=== PATIENT | male | born 1980 | race Caucasian/White ===

== ENCOUNTER 2018-06-29 09:55 | Emergency (ER) | payer SELFPAY ==
[~2018-06-29] VITALS: Ht 175.3 cm; Wt 99.8 kg
--- OUTSIDE RECORDS SUMMARY | 2018-06-29 09:58 | XMS REPORT | Clinical Summary ---
Author Author [facility] Organization [facility] Address Unknown Phone Unavailable Care Team Providers Care Rn Mds Name Role Phone Asked, No Pcp PCP Unavailable Allergies Active Allergy Reactions Severity Noted Date Comments Penicillins Rash High 11/28/2017 Current Medications Prescription Sig. Disp. Refills Start End Date Status Date gabapentin (NEURONTIN) Take 300 mg by mouth 3 Active 300 mg capsule (three) times a day. divalproex (DEPAKOTE) 500 Take 500 mg by mouth Active MG 24 hr tablet nightly. hydrOXYzine (ATARAX) 50 Take 50 mg by mouth 3 Active MG tablet (three) times a day as needed for anxiety. traZODone (DESYREL) 100 Take 100 mg by mouth Active MG tablet nightly. mirtazapine (REMERON) 15 Take 15 mg by mouth Active MG tablet nightly. mirtazapine (REMERON) 15 Take 1 tablet (15 mg 30 tablet 0 12/05/01/05/20 MG tabletIndications: total) by mouth nightly 18 18 Major Depressive Disorder for 30 days. gabapentin (NEURONTIN) Take 2 capsules (600 mg 180 capsule 0 12/05/20 01/05/20 300 mg total) by mouth 3 (three) 18 18 capsuleIndications: times a day for 30 days. Alcoholism hydrOXYzine (ATARAX) 50 Take 1 tablet (50 mg 30 tablet 0 12/05/01/05/20 MG tabletIndications: total) by mouth 3 (three) 18 18 Anxiety times a day as needed for anxiety for up to 30 days. levoFLOXacin (LEVAQUIN) Take 1 tablet (750 mg 5 tablet 0 12/06/20 12/12/19 750 MG tabletIndications: total) by mouth daily for 18 18 respiratory infection 5 days. traZODone (DESYREL) 100 Take 1 tablet (100 mg 30 tablet 0 12/06/19 01/05/20 MG tabletIndications: total) by mouth nightly 18 18 insomnia associated with as needed (INSOMNIA) for depression up to 30 days. nicotine (NICODERM CQ) 21 Place 1 patch on the skin 30 patch 0 12/06/19 01/05/20 mg/24 hrIndications: daily as needed (NICOTINE 18 18 Smoking Cessation WITHDRAWAL) for up to 30 days. folic acid (FOLVITE) 1 MG Take 1 tablet (1 mg 30 tablet 0 02/19/20 03/20/20 tablet total) by mouth daily for 18 18 30 days. multivitamin (THERAGRAN) Take 1 tablet by mouth 30 tablet 0 02/19/20 03/20/20 tablet daily for 30 days. 18 18 pantoprazole (PROTONIX) Take 1 tablet (40 mg 30 tablet 0 02/20/20 03/21/20 40 MG EC total) by mouth daily for 18 18 tabletIndications: 30 days. Alcohol dependence with withdrawal delirium (HCC) thiamine 100 MG tablet Take 1 tablet (100 mg 30 tablet 0 02/19/20 03/20/20 total) by mouth daily for 18 18 30 days. ferrous sulfate 325 (65 Take 1 tablet (325 mg 90 tablet 0 02/19/20 03/20/20 FE) MG EC tablet total) by mouth 3 (three) 18 18 times a day with meals for 30 days. Active Problems Problem Noted Date Alcohol dependence with withdrawal delirium (HCC) 02/16/2018 MDD (major depressive disorder), recurrent episode, severe (HCC) 11/30/2017 Alcohol abuse 11/29/2017 Encounters Date Type Specialty Care Team Description 02/16/2018 [facility] General Internal Medicine Pelon Bundy MD Alcohol dependence with - Encounter Aspen Boggs MD withdrawal delirium 02/18/2018 (Primary Dx); Severe episode of recurrent major depressive disorder, without psychotic features 11/28/2017 [facility] Psychiatry Merlin Burrell DO Alcoholic intoxication - Encounter Michele Chamorro MD with complication 12/06/2017 Wes Dolan MD (Primary Dx); DTs (delirium tremens) after 06/28/2017 Family History Medical History Relation Name Comments Anxiety disorder Mother Relation Name Status Comments Mother Social History Tobacco Use Types Packs/Day Years Used Date Current Every Day Smoker Cigarettes 1 15 Tobacco Cessation: Ready to Quit: No; Counseling Given: Yes Alcohol Use Drinks/Week oz/Week Comments Yes 1/2 marcela borrego Sex Assigned at Date Recorded Not on file Last Filed Vital Signs Vital Sign Reading Time Taken Blood Pressure 136/83 02/18/2018 7:22 AM CDT Pulse 84 02/18/2018 7:22 AM CDT Temperature 35.8 C (96.5 F) 02/18/2018 7:22 AM CDT Respiratory Rate 19 02/18/2018 7:22 AM CDT Oxygen Saturation 95% 02/18/2018 7:22 AM CDT Inhaled Oxygen - - Concentration Weight 103 kg (226 lb 12.8 oz) 02/17/2018 12:53 PM CDT Height 175.3 cm (5' 9") 11/29/2017 8:37 PM CDT Body Mass Index 33.49 02/17/2018 12:53 PM CDT Plan of Treatment Health Maintenance Due Date Last Done Comments INFLUENZA VACCINE 04/13/2018 Procedures Procedure Name Priority Date/Time Associated Diagnosis Comments HC COMPLETE BLD COUNT Routine 02/18/2018 Results for this W/AUTO DIFF 6:00 AM CDT procedure are in the results section. VITAMIN B1 LEVEL, WHOLE Routine 02/18/2018 Results for this BLOOD 6:00 AM CDT procedure are in the results section. ZZESTIMATED GFR Routine 02/18/2018 Results for this 4:00 AM CDT procedure are in the results section. BASIC METABOLIC PANEL Routine 02/18/2018 Results for this 4:00 AM CDT procedure are in the results section. TOTAL IRON BINDING Routine 02/18/2018 Results for this CAPACITY 4:00 AM CDT procedure are in the results section. FERRITIN LEVEL Routine 02/18/2018 Results for this 4:00 AM CDT procedure are in the results section. PHOSPHORUS LEVEL Routine 02/18/2018 Results for this 4:00 AM CDT procedure are in the results section. MAGNESIUM LEVEL Routine 02/18/2018 Results for this 4:00 AM CDT procedure are in the results section. ZZESTIMATED GFR Routine 02/17/2018 Results for this 5:00 AM CDT procedure are in the results section. FOLATE LEVEL Routine 02/17/2018 Results for this 5:00 AM CDT procedure are in the results section. VITAMIN B12 LEVEL Routine 02/17/2018 Results for this 5:00 AM CDT procedure are in the results section. PHOSPHORUS LEVEL Routine 02/17/2018 Results for this 5:00 AM CDT procedure are in the results section. MAGNESIUM LEVEL Routine 02/17/2018 Results for this 5:00 AM CDT procedure are in the results section. COMPREHENSIVE METABOLIC Routine 02/17/2018 Results for this PANEL 5:00 AM CDT procedure are in the results section. HC COMPLETE BLD COUNT Routine 02/17/2018 Results for this W/AUTO DIFF 5:00 AM CDT procedure are in the results section. US ABDOMEN COMPLETE STAT 02/16/2018 Results for this 4:03 PM CDT procedure are in the results section. XR CHEST 1 VW PORTABLE STAT 02/16/2018 Results for this 2:23 PM CDT procedure are in the results section. ECG ED PRELIMINARY Routine 02/16/2018 Results for this INTERPRETATION 12:08 PM CDT procedure are in the results section. URINALYSIS SCREEN AND STAT 02/16/2018 Results for this MICROSCOPY, WITH REFLEX 9:40 AM CDT procedure are in the TO CULTURE results section. URINE DRUGS OF ABUSE STAT 02/16/2018 Results for this SCREEN 9:40 AM CDT procedure are in the results section. URINE CULTURE STAT 02/16/2018 Results for this 9:40 AM CDT procedure are in the results section. ECG 12-LEAD STAT 02/16/2018 Results for this 9:34 AM CDT procedure are in the results section. VALPROIC ACID LEVEL STAT 02/16/2018 Results for this 9:33 AM CDT procedure are in the results section. ZZESTIMATED GFR STAT 02/16/2018 Results for this 9:33 AM CDT procedure are in the results section. SALICYLATE LEVEL STAT 02/16/2018 Results for this 9:33 AM CDT procedure are in the results section. ACETAMINOPHEN LEVEL STAT 02/16/2018 Results for this 9:33 AM CDT procedure are in the results section. ALCOHOL LEVEL, BLOOD STAT 02/16/2018 Results for this 9:33 AM CDT procedure are in the results section. T4, FREE STAT 02/16/2018 Results for this 9:33 AM CDT procedure are in the results section. THYROID STIMULATING STAT 02/16/2018 Results for this HORMONE 9:33 AM CDT procedure are in the results section. COMPREHENSIVE METABOLIC STAT 02/16/2018 Results for this PANEL 9:33 AM CDT procedure are in the results section. HC COMPLETE BLD COUNT STAT 02/16/2018 Results for this W/AUTO DIFF 9:33 AM CDT procedure are in the results section. ZZESTIMATED GFR Routine 12/04/2017 Results for this 12:00 AM CDT procedure are in the results section. COMPREHENSIVE METABOLIC Routine 12/04/2017 Results for this PANEL 12:00 AM CDT procedure are in the results section. US HEPATIC Routine 11/30/2017 Results for this 3:33 PM CDT procedure are in the results section. XR CHEST 2 VW Routine 11/30/2017 Results for this 3:12 PM CDT procedure are in the results section. HEPATITIS ACUTE PANEL Routine 11/30/2017 Results for this 10:02 AM CDT procedure are in the results section. SYPHILIS TREPONEMAL IGG Routine 11/30/2017 Results for this 10:02 AM CDT procedure are in the results section. HIV 1, 2 ANTIBODY Routine 11/30/2017 Results for this 10:02 AM CDT procedure are in the results section. ECG 12-LEAD STAT 11/30/2017 Results for this 8:33 AM CDT procedure are in the results section. HEMOGLOBIN A1C Routine 11/30/2017 Results for this 5:30 AM CDT procedure are in the results section. LIPID PANEL Routine 11/30/2017 Results for this 1:20 AM CDT procedure are in the results section. ECG 12-LEAD STAT 11/28/2017 Results for this 8:16 PM CDT procedure are in the results section. ZZESTIMATED GFR STAT 11/28/2017 Results for this 8:10 PM CDT procedure are in the results section. VALPROIC ACID LEVEL STAT 11/28/2017 Results for this 8:10 PM CDT procedure are in the results section. CARBAMAZEPINE LEVEL STAT 11/28/2017 Results for this 8:10 PM CDT procedure are in the results section. LITHIUM LEVEL STAT 11/28/2017 Results for this 8:10 PM CDT procedure are in the results section. CREATINE KINASE, TOTAL STAT 11/28/2017 Results for this (CPK) 8:10 PM CDT procedure are in the results section. SALICYLATE LEVEL STAT 11/28/2017 Results for this 8:10 PM CDT procedure are in the results section. ACETAMINOPHEN LEVEL STAT 11/28/2017 Results for this 8:10 PM CDT procedure are in the results section. URINE DRUGS OF ABUSE STAT 11/28/2017 Results for this SCREEN 8:10 PM CDT procedure are in the results section. URINALYSIS SCREEN AND STAT 11/28/2017 Results for this MICROSCOPY, WITH REFLEX 8:10 PM CDT procedure are in the TO CULTURE results section. ALCOHOL LEVEL, BLOOD STAT 11/28/2017 Results for this 8:10 PM CDT procedure are in the results section. THYROID STIMULATING STAT 11/28/2017 Results for this HORMONE 8:10 PM CDT procedure are in the results section. T4, FREE STAT 11/28/2017 Results for this 8:10 PM CDT procedure are in the results section. COMPREHENSIVE METABOLIC STAT 11/28/2017 Results for this PANEL 8:10 PM CDT procedure are in the results section. HC COMPLETE BLD COUNT STAT 11/28/2017 Results for this W/AUTO DIFF 8:10 PM CDT procedure are in the results section. URINE CULTURE STAT 11/28/2017 Results for this 8:10 PM CDT procedure are in the results section. after 06/28/2017 Results * Vitamin B1 level, whole blood (02/18/2018 6:00 AM) Vitamin B1 263 (H) 70 - 180 nmol/L [facility] Comment: INTERPRETIVE INFORMATION: Vitamin B1, Whole Blood This assay measures the concentration of thiamine diphosphate (TDP), the primary active form of vitamin B1. Approximately 90 percent of vitamin B1 present in whole blood is TDP. Thiamine and thiamine monophosphate, which comprise the remaining 10 percent, are not measured. Test developed and characteristics determined by [facility]. See Compliance Statement B: [employer]/CS Performed by [facility], [address], [place] [id number] [email or web address] Jose Cedeno MD - Lab. Director Specimen Plasma specimen Performing Organization Address City/State/Zipcode Phone Number [facility] [address] [place] [address] * CBC with platelet and differential (02/18/2018 6:00 AM) Only the most recent of 4 results within the time period is included. WBC 9.00 4.50 - 11.00 k/uL [facility] OF PATHOLOGY AND GENOMIC MEDICINE RBC 4.55 4.40 - 6.00 m/uL [facility]OLOGY [facility]OMIC MEDICINE HGB 12.7 (L) 14.0 - 18.0 g/dL [facility] PATHOLOGY AND GENOMIC MEDICINE HCT 38.0 (L) 41.0 - 51.0 % [facility]OLOGY AND [facility]OMIC MEDICINE MCV 83.5 82.0 - 100.0 fL [facility]OLOGY AND GENOMIC MEDICINE MCH 27.9 27.0 - 34.0 pg [facility]OLOGY AND GENOMIC MEDICINE MCHC 33.4 31.0 - 37.0 g/dL [facility] PATHOLOGY AND GENOMIC MEDICINE RDW - SD 42.5 37.0 - 55.0 fL [facility] OF PATHOLOGY AND GENOMIC MEDICINE MPV 10.4 8.8 - 13.2 fL [facility]OLOGY AND [facility]IC MEDICINE Platelet count 202 150 - 400 k/uL [facility] PATHOLOGY AND [facility]OMIC MEDICINE Nucleated RBC 0.00 /100 WBC [facility] PATHOLOGY AND GENOMIC MEDICINE Neutrophils 59.4 39.0 - 69.0 % [facility]OLOGY AND GENOMIC MEDICINE Lymphocytes 28.1 25.0 - 45.0 % [facility] PATHOLOGY AND GENOMIC MEDICINE Monocytes 5.0 0.0 - 10.0 % [facility] PATHOLOGY AND GENOMIC MEDICINE Eosinophils 6.2 (H) 0.0 - 5.0 % [facility] PATHOLOGY AND GENOMIC MEDICINE Basophils 0.3 0.0 - 1.0 % [facility] OF PATHOLOGY AND GENOMIC MEDICINE Immature granulocytes 1.0Comment: "Immature 0.0 - 1.0 % [facility] DEPARTMENT OF granulocytes" (promyelocytes, PATHOLOGY AND myelocytes, metamyelocytes) GENOMIC MEDICINE Specimen Blood Performing Organization Address City/[facility] [place] [address] PATHOLOGY AND GENOMIC MEDICINE * Total iron binding capacity (02/18/2018 4:00 AM) Iron level 46 (L) 59 - 158 ug/dL [facility] PATHOLOGY AND GENOMIC MEDICINE Iron binding capacity 246 200 - 400 ug/dL [facility] PATHOLOGY AND GENOMIC MEDICINE % Saturation 18.7 (L) 20.0 - 40.0 % [facility] PATHOLOGY AND GENOMIC MEDICINE Specimen Plasma specimen Performing Organization Address City/[facility] Cent[facility] Phone Number [address] [address] PATHOLOGY [facility] GENOMIC MEDICINE * Estimated GFR (02/18/2018 4:00 AM) Only the most recent of 5 results within the time period is included. GFR Non Af Amer >90 mL/min/1.73 m2 [facility] PATHOLOGY AND GENOMIC MEDICINE GFR Af Amer >90 mL/min/1.73 m2 [facility] DEPARTMENT OF Comment: PATHOLOGY AND Chronic kidney disease: <60 GENOMIC MEDICINE mL/min/1.73m2 Kidney failure: <15 mL/min/1.73m2 The estimated GFR is calculated from the IDMS-traceable Modification of Diet in Renal Disease Equation. The accuracy of the calculation is poor when the creatinine is normal. Calculated values >90 mL/min/1.73m2 are not reported. This equation has not been validated in children (<18 years), women, the elderly (>70 years), or ethnic groups other than Caucasians and Americans. Specimen Plasma specimen Performing Organization Address City/[facility] [place] [address] PATHOLOGY AND [facility] * Phosphorus level (02/18/2018 4:00 AM) Only the most recent of 2 results within the time period is included. Phosphorus 4.4 2.4 - 4.5 mg/dL [facility] DEPARTMENT OF PATHOLOGY AND [facility]ICINE Specimen Plasma specimen Performing Organization Address City/[facility] [place] [address] PATHOLOGY [facility] * Magnesium level (02/18/2018 4:00 AM) Only the most recent of 2 results within the time period is included. Magnesium 2.1 1.6 - 2.6 mg/dL [facility] OF PATHOLOGY AND [facility] Specimen Plasma specimen Performing Organization Address City/[facility] [place] [address] PATHOLOGY AND [facility] * Ferritin level (02/18/2018 4:00 AM) Ferritin level 173 30 - 400 ng/mL [facility] OF PATHOLOGY AND [facility] Specimen Plasma specimen Performing Organization Address City/[facility] [place] [address] PATHOLOGY [facility] * Basic metabolic panel (02/18/2018 4:00 AM) Sodium 141 135 - 148 mEq/L [facility] OF PATHOLOGY AND GENOMIC MEDICINE Potassium 3.9 3.5 - 5.0 mEq/L [facility] OF PATHOLOGY AND GENOMIC MEDICINE Chloride 105 98 - 112 mEq/L [facility] OF PATHOLOGY AND GENOMIC MEDICINE CO2 21 (L) 24 - 31 mEq/L [facility] OF PATHOLOGY AND GENOMIC MEDICINE Anion gap 15@ANIO 7 - 15 mEq/L [facility] OF PATHOLOGY AND GENOMIC MEDICINE BUN 12 6 - 20 mg/dL [facility] OF PATHOLOGY AND GENOMIC MEDICINE Creatinine 0.8 0.7 - 1.2 mg/dL [facility] OF PATHOLOGY AND GENOMIC MEDICINE Glucose 104 (H) 65 - 99 mg/dL [facility] OF PATHOLOGY AND GENOMIC MEDICINE Calcium 8.4 8.3 - 10.2 mg/dL [facility] OF PATHOLOGY AND GENOMIC MEDICINE Specimen Plasma specimen Performing Organization Address City/[facility]/[place] [address] PATHOLOGY AND GENOMIC [facility] * Folate level (02/17/2018 5:00 AM) Folate >20.0 4.8 - 24.2 ng/mL [facility] OF PATHOLOGY AND GENOMIC MEDICINE Specimen Serum Performing Organization Address City/[facility] [place] [address] PATHOLOGY AND [facility] * Vitamin B12 level (02/17/2018 5:00 AM) Vitamin B12 341 211 - 946 pg/mL [facility]PART[facility] OF Comment: PATHOLOGY AND Significant overlap exists GENOMIC MEDICINE between normal and deficiency states. However, most patients with deficiencies will have Serum B12 <200 pg/mL. Specimen Serum Performing Organization Address City/[facility] [place] [address] PATHOLOGY AND GENOMIC MEDICINE * Comprehensive metabolic panel (02/17/2018 5:00 AM) Only the most recent of 4 results within the time period is included. Sodium 140 135 - 148 mEq/L [facility] OF PATHOLOGY AND GENOMIC MEDICINE Potassium 3.1 (L) 3.5 - 5.0 mEq/L [facility] OF PATHOLOGY AND GENOMIC MEDICINE Chloride 101 98 - 112 mEq/L [facility] OF PATHOLOGY AND GENOMIC MEDICINE CO2 25 24 - 31 mEq/L [facility] OF PATHOLOGY AND GENOMIC MEDICINE Anion gap 14@ANIO 7 - 15 mEq/L [facility]MENT OF PATHOLOGY AND GENOMIC MEDICINE BUN 18 6 - 20 mg/dL [facility] OF PATHOLOGY AND GENOMIC MEDICINE Creatinine 1.0 0.7 - 1.2 mg/dL [facility] OF PATHOLOGY AND GENOMIC MEDICINE Glucose 114 (H) 65 - 99 mg/dL [facility] OF PATHOLOGY AND GENOMIC MEDICINE Calcium 9.0 8.3 - 10.2 mg/dL [facility] OF PATHOLOGY AND GENOMIC MEDICINE Protein 6.8 6.3 - 8.3 g/dL [facility] DEPARTMENT OF Comment: PATHOLOGY AND GENOMIC MEDICINE 4.6-7.0 g/dL 1 week 4.4-7.6 g/dL 7 months-1year 5.1-7.3 g/dL 1-2 years5.6-7 .5 g/dL >3 years6.0-8 .0 g/dL 18-150 6.3-8.3 g/dL Albumin 3.3 (L) 3.5 - 5.0 g/dL [facility] OF PATHOLOGY AND GENOMIC MEDICINE A/G ratio 0.9 0.7 - 3.8 [facility] OF PATHOLOGY AND GENOMIC MEDICINE Alkaline phosphatase 88 40 - 129 U/L [facility] OF PATHOLOGY AND GENOMIC MEDICINE AST 42 10 - 50 U/L [facility] OF PATHOLOGY AND GENOMIC MEDICINE ALT 56 (H) 5 - 50 U/L [facility] OF PATHOLOGY AND GENOMIC MEDICINE Total bilirubin 0.3 0.0 - 1.2 mg/dL [facility] OF PATHOLOGY AND GENOMIC MEDICINE Specimen Plasma specimen Performing Organization Address City/State/Zipcode Phone Number [facility] DEPARTMENT OF [address] [place] [address] PATHOLOGY AND GENOMIC MEDICINE * US Abdomen Complete (02/16/2018 4:03 PM) Narrative Performed At Examination: US ABDOMEN COMPLETE [facility] Clinical history: chronic alcoholism Comparison: 11/30/2017 Impression:Transverse and longitudinal sonographic images were obtained through the abdomen. 1.The gallbladder appears normal without evidence of calculus, pericholecystic fluid, or gallbladder wall thickening.The common ductis normal in caliber measuring 3 mm. 2.No focal liver is seen. No definite morphologic evidence of cirrhosis. The portal vein is patent.The spleen is not enlarged. 3.The right kidney measures 10.6 and left kidney 10.3 cm in length. The kidneys demonstrate a normal sonographic appearance. 4.The visualized pancreas, abdominal aorta, and inferior vena cava are unremarkable. 5.There is no suspicious fluid. [id number] Procedure Note Interface, Radiology Results Incoming - 02/16/2018 4:08 PM CDT Examination: US ABDOMEN COMPLETE Clinical history: chronic alcoholism Comparison: 11/30/2017 Impression: Transverse and longitudinal sonographic images were obtained through the abdomen. 1. The gallbladder appears normal without evidence of calculus, pericholecystic fluid, or gallbladder wall thickening. The common duct is normal in caliber measuring 3 mm. 2. No focal liver is seen. No definite morphologic evidence of cirrhosis. The portal vein is patent. The spleen is not enlarged. 3. The right kidney measures 10.6 and left kidney 10.3 cm in length. The kidneys demonstrate a normal sonographic appearance. 4. The visualized pancreas, abdominal aorta, and inferior vena cava are unremarkable. 5. There is no suspicious fluid. [id number] Performing Organization Address [facility] Phone Number [facility] [address] [place] [address] * XR Chest 1 Vw Portable (02/16/2018 2:23 PM) Narrative Performed At EXAMINATION:XR CHEST 1 VW PORTABLE [facility] CLINICAL HISTORY:Cough, Alcoholic patient with coughsuspect aspiration COMPARISON:November 30, 2017 chest IMPRESSION: Unremarkable single view chest. No change compared to previous. The lungs are clear. The heart is not enlarged. The bony structures are within normal limits. [id number] Procedure Note Interface, Radiology Results Incoming - 02/16/2018 2:30 PM CDT EXAMINATION: XR CHEST 1 VW PORTABLE CLINICAL HISTORY: Cough, Alcoholic patient with cough suspect aspiration COMPARISON: November 30, 2017 chest IMPRESSION: Unremarkable single view chest. No change compared to previous. The lungs are clear. The heart is not enlarged. The bony structures are within normal limits. [id number] Performing Organization Address [facility] Phone Number [facility] [address] [place] [address] * ECG ED Preliminary Interpretation - NOT AN ORDER (02/16/2018 12:08 PM) Narrative Performed At Pelon Bundy MD 02/17/20182:20 PM ECG ED Preliminary Interpretation - Not an Order Performed by: PELON BUNDY Authorized by: PELON BUNDY ECG reviewed by ED Physician in the absence of a va underwriter: yes Previous ECG: Previous ECG:Unavailable Interpretation: Interpretation: abnormal Rate: ECG rate:121 ECG rate assessment: tachycardic Rhythm: Rhythm: sinus tachycardia QRS: QRS axis:Normal QRS intervals:Normal ST segments: ST segments:Non-specific T waves: T waves: normal * Urinalysis screen and microscopy, with reflex to culture (02/16/2018 9:40 AM) Only the most recent of 2 results within the time period is included. Specimen site Midstream [facility]PARTMENT OF PATHOLOGY AND GENOMIC MEDICINE Color, UA Bailey [facility]PART[facility] OF PATHOLOGY AND GENOMIC MEDICINE Appearance, UA Clear [facility]PARTMENT OF PATHOLOGY AND GENOMIC MEDICINE Specific gravity, UA 1.035 1.001 - 1.035 [facility] DEPARTMENT OF PATHOLOGY AND GENOMIC MEDICINE pH, UA 5.0 5.0 - 8.5 [facility]MENT OF PATHOLOGY AND GENOMIC MEDICINE Protein, UA 2+ (A) Negative [facility] OF PATHOLOGY AND GENOMIC MEDICINE Glucose, UA Negative Negative [facility] OF PATHOLOGY AND GENOMIC MEDICINE Ketones, UA Trace (A) Negative [facility] OF PATHOLOGY AND GENOMIC MEDICINE Bilirubin, UA Positive@UBIL (A) Negative [facility] OF PATHOLOGY AND GENOMIC MEDICINE Blood, UA Negative Negative [facility]PARTMENT OF PATHOLOGY AND GENOMIC MEDICINE Nitrite, UA Negative Negative [facility] OF PATHOLOGY AND GENOMIC MEDICINE Urobilinogen, UA 4.0 (A) <2.0 [facility] PATHOLOGY AND GENOMIC MEDICINE Leukocyte esterase, UA Negative Negative [facility] PATHOLOGY AND GENOMIC MEDICINE WBC, UA 1 0 - 1 /HPF [facility] PATHOLOGY AND GENOMIC MEDICINE RBC, UA 3 0 - 5 /HPF [facility] PATHOLOGY AND GENOMIC MEDICINE Bacteria, UA Few None seen [facility] PATHOLOGY AND GENOMIC MEDICINE Yeast, UA None seen [facility] PATHOLOGY AND GENOMIC MEDICINE Yeast with pseudohyphae, None seen [facility] UA PATHOLOGY AND GENOMIC MEDICINE Hyaline casts, UA >20 (A) /LPF [facility] PATHOLOGY AND GENOMIC MEDICINE Specimen Urine Performing Organization Address City/State/Zipcode Phone Number [facility] OF [address] [place] [address] PATHOLOGY AND GENOMIC MEDICINE * Urine drugs of abuse screen (02/16/2018 9:40 AM) Only the most recent of 2 results within the time period is included. Amphetamine screen, urine Positive (A) [facility] PATHOLOGY AND GENOMIC MEDICINE Barbiturate screen, urine Negative [facility] PATHOLOGY AND GENOMIC MEDICINE Benzodiazepine screen, Negative [facility] urine PATHOLOGY AND GENOMIC MEDICINE Cannabinoid screen, urine Negative [facility] PATHOLOGY AND GENOMIC MEDICINE Cocaine screen, urine Negative [facility] PATHOLOGY AND GENOMIC MEDICINE Methadone metabolite Negative [facility] OF (EDDP), urine PATHOLOGY AND GENOMIC MEDICINE Opiates screen, urine Negative [facility] PATHOLOGY AND GENOMIC MEDICINE Oxycodone screen, urine Negative [facility] OF PATHOLOGY AND GENOMIC MEDICINE Phencyclidine screen, Negative [facility] urine PATHOLOGY AND GENOMIC MEDICINE Tricyclic screen, urine Negative [facility] Comment: PATHOLOGY AND Drug screen minimum GENOMIC MEDICINE concentration of detectability Amphetamines 1000 ng/mL Barbiturates 200 ng/mL Benzodiazepines 300 ng/mL Cocaine 300 ng/mL Methadone 300 ng/mL Opiates 300 ng/mL Oxycodone 300 ng/mL Phencyclidine 25 ng/mL Cannabinoids 50 ng/mL Tricyclics 1000 ng/mL Negative test results indicates presumptive evidence of lack of clinically significant drug concentration in this urine specimen. Positive test results are presumptive evidence of clinically significant drug concentration in this urine specimen. Testing performed for medical purposes only. Specimen Urine Performing Organization Address City/State/Zipcode Phone Number [facility] OF [address] [place] [address] PATHOLOGY AND GENOMIC MEDICINE * Urine culture (02/16/2018 9:40 AM) Only the most recent of 2 results within the time period is included. Urine culture SEE COMMENTComment: [facility] OF Bacteriuria screen negative. PATHOLOGY AND GENOMIC MEDICINE Performing Organization Address City/[facility] Phone Number [facility] OF [address] [place] [address] PATHOLOGY AND GENOMIC MEDICINE * ECG 12 lead (02/16/2018 9:34 AM) Only the most recent of 3 results within the time period is included. Ventricular rate 121 [facility] Atrial rate 121 [facility] AZ interval 132 [facility] QRSD interval 100 [facility] QT interval 324 [facility] QTC interval 460 [facility] P axis 1 65 [facility] QRS axis 1 59 [facility] T wave axis 16 [facility] EKG impression Sinus tachycardia-Nonspecific [facility] ST abnormality-Abnormal ECG-In automated comparison with ECG of 30-NOV-2017 08:33,-Vent. rate has increased BY 45 BPM- Performing Organization Address City/[facility] Cent[facility] Phone Number [facility] MUSE [address] [place] [address] * Thyroid stimulating hormone (02/16/2018 9:33 AM) Only the most recent of 2 results within the time period is included. TSH 1.20 0.27 - 4.20 uIU/mL [facility] OF PATHOLOGY AND GENOMIC MEDICINE Specimen Plasma specimen Performing Organization Address [facility] Phone Number [facility] [place] [address] PATHOLOGY AND GENOMIC MEDICINE * T4, free (02/16/2018 9:33 AM) Only the most recent of 2 results within the time period is included. T4, free 1.2 0.9 - 1.7 ng/dL [facility] OF PATHOLOGY AND GENOMIC MEDICINE Specimen Plasma specimen Performing Organization Address [facility] Phone Number [facility] [place] [address] PATHOLOGY AND GENOMIC MEDICINE * Alcohol level, blood (02/16/2018 9:33 AM) Only the most recent of 2 results within the time period is included. Alcohol None Detected mg/dL [facility] OF Comment: PATHOLOGY AND Normal GENOMIC MEDICINE None Detected Legal Intoxication in [place]80 mg/dL (0.08%) - Whole Blood Toxic Concentration 200 mg/dL (0.2%) Potentially Fatal3 50 - 500 mg/dL (0.35 - 0.5%) Alcohol percent None Detected % [facility] OF PATHOLOGY AND GENOMIC MEDICINE Specimen Plasma specimen Performing Organization Address [facility] Phone Number [facility] [place] [address] PATHOLOGY AND GENOMIC MEDICINE * Acetaminophen level (02/16/2018 9:33 AM) Only the most recent of 2 results within the time period is included. Acetaminophen level <15.0 10.0 - 30.0 ug/mL [facility] OF Comment: PATHOLOGY AND Therapeutic GENOMIC MEDICINE 10-30 ug/mL Possible Toxicity 150-200 ug/mL Probable Toxicity >200 ug/mL Specimen Plasma specimen Performing Organization Address [facility] Cent[facility] Phone Number [facility] [place] [address] PATHOLOGY AND GENOMIC MEDICINE * Salicylate level (02/16/2018 9:33 AM) Only the most recent of 2 results within the time period is included. Salicylate <3.0 3.0 - 30.0 mg/dL [facility] OF PATHOLOGY AND GENOMIC MEDICINE Specimen Plasma specimen Performing Organization Address City/[facility]/Zipcode Phone Number [facility] OF [address] [place] [id number] PATHOLOGY AND GENOMIC MEDICINE * Valproic acid level (02/16/2018 9:33 AM) Only the most recent of 2 results within the time period is included. Valproic acid <2.8 (L) 50.0 - 100.0 ug/mL [facility] OF Comment: PATHOLOGY AND Therapeutic Range: GENOMIC MEDICINE 50 - 100 ug/mL Specimen Plasma specimen Performing Organization Address [facility] Cent[facility]ode Phone Number [facility] [address] [address] PATHOLOGY AND GENOMIC MEDICINE * US Hepatic (11/30/2017 3:33 PM) Narrative Performed At EXAM: [facility] Hepatic ultrasound. INDICATION: Abnormal liver function tests. COMPARISON: None. TECHNIQUE: Multiple grayscale, color Doppler, spectral Doppler images of the liver and adjacent structures were obtained. FINDINGS: Liver is normal in contour, echotexture, and echogenicity. No intrahepatic mass or biliary dilatation. Main portal vein is normal in appearance and caliber measuring up to 0.9 cm in diameter the raphael hepatis. It is patent with normal hepatopedal flow and gently and letting waveform. Common bile duct is normal in appearance and caliber measuring up to 0.4 cm in diameter at the raphael hepatis. Gallbladder is decompressed. This limits full evaluation of the gallbladder wall. Mild concentric thickening of gallbladder wall to a maximal diameter 4 mm likely due to underdistention. Gallbladder was nontender palpation with the ultrasound transducer. No cholelithiasis or pericholecystic fluid. IMPRESSION: Normal hepatic ultrasound. Procedure Note Interface, Radiology Results Incoming - 11/30/2017 3:59 PM CDT EXAM: Hepatic ultrasound. INDICATION: Abnormal liver function tests. COMPARISON: None. TECHNIQUE: Multiple grayscale, color Doppler, spectral Doppler images of the liver and adjacent structures were obtained. FINDINGS: Liver is normal in contour, echotexture, and echogenicity. No intrahepatic mass or biliary dilatation. Main portal vein is normal in appearance and caliber measuring up to 0.9 cm in diameter the raphael hepatis. It is patent with normal hepatopedal flow and gently and letting waveform. Common bile duct is normal in appearance and caliber measuring up to 0.4 cm in diameter at the raphael hepatis. Gallbladder is decompressed. This limits full evaluation of the gallbladder wall. Mild concentric thickening of gallbladder wall to a maximal diameter 4 mm likely due to underdistention. Gallbladder was nontender palpation with the ultrasound transducer. No cholelithiasis or pericholecystic fluid. IMPRESSION: Normal hepatic ultrasound. Performing Organization Address [facility] Phone Number [facility] [address] [place] [address] * XR Chest 2 Vw (11/30/2017 3:12 PM) Narrative Performed At EXAMINATION:XR CHEST 2 VW [facility] CLINICAL HISTORY:Cough COMPARISON:None. IMPRESSION: Frontal and lateral views reveal a normal cardiomediastinal silhouette. However, the right cardiac margin is somewhat obscured as can be the result of early developing right middle lobe pneumonia. Left hemithorax is clear. Pleural margins are otherwise sharp. The remainder of the examination is unremarkable. [id number] Procedure Note Interface, Radiology Results Incoming - 11/30/2017 3:18 PM CDT EXAMINATION: XR CHEST 2 VW CLINICAL HISTORY: Cough COMPARISON: None. IMPRESSION: Frontal and lateral views reveal a normal cardiomediastinal silhouette. However, the right cardiac margin is somewhat obscured as can be the result of early developing right middle lobe pneumonia. Left hemithorax is clear. Pleural margins are otherwise sharp. The remainder of the examination is unremarkable. [id number] Performing Organization Address [facility] Phone Number [facility] [address] [place] [address] * Syphilis treponemal IgG (11/30/2017 10:02 AM) Syphilis treponemal IgG Non-reactiveComment: Non-reactive [facility] OF Non-reactive: No serological PATHOLOGY AND evidence of Syphilis infection GENOMIC MEDICINE Specimen Serum Performing Organization Address [facility] Phone Number [facility] [address] [address] PATHOLOGY AND GENOMIC MEDICINE * Hepatitis acute panel (11/30/2017 10:02 AM) Hepatitis A IgM Non-reactive Non-reactive [facility] OF PATHOLOGY AND GENOMIC MEDICINE Hepatitis B core IgM Non-reactive Non-reactive [facility]MENT OF PATHOLOGY AND GENOMIC MEDICINE Hepatitis B surface Ag Non-reactive Non-reactive [facility] OF PATHOLOGY AND GENOMIC MEDICINE Hepatitis C Ab Non-reactive Non-reactive [facility] OF PATHOLOGY AND GENOMIC MEDICINE Specimen Serum Performing Organization Address City/State/[place] [address] PATHOLOGY AND GENOMIC MEDICINE * HIV 1, 2 antibody (11/30/2017 10:02 AM) HIV 1, 2 antibody Non-reactive Non-reactive [facility] OF Comment: PATHOLOGY AND Starting from December 10 2015, GENOMIC MEDICINE 4th generation HIV screening and confirmation assays are in use at [facility], consistent with the CDC-recommended algorithm. The screening test detects antibodies to HIV-1, HIV-2 and the p24 antigen. Positive screening results will be automatically reflexed to a HIV-1/HIV-2 differentiation assay. Indeterminant HIV-1 results will be further automatically reflexed to a nucleic acid test for detection of acute infection. Western blot will no longer be performed as a confirmation test. For a quick reference guide on the testing algorithm, please refer to: http://stacks.cdc.gov/view/cdc /89274. Specimen Serum Performing Organization Address [facility] [place] [address] PATHOLOGY AND [facility] * Hemoglobin A1c (11/30/2017 5:30 AM) Hemoglobin A1C 5.2 4.0 - 5.6 % [facility] OF Comment: PATHOLOGY AND HbA1c cutoffs for diagnosing [facility] MEDICINE diabetes: 4.0% - 5.6%=normal 5.7% - 6.4%=increased risk for diabetes (prediabetes) >=6.5%=diabetes Goals for glycemic control (ADA 2016) < 7.0%Target for non adults with diabetes. More or less stringent targets may be appropriate for individual patients. <7.5% Target for Children and adolescents with type 1 diabetes. Specimen Blood Performing Organization Address City/[facility]/[place] [address] PATHOLOGY AND [facility] * Lipid panel (11/30/2017 1:20 AM) Cholesterol 198 <200 mg/dL [facility] OF PATHOLOGY AND GENOMIC MEDICINE Triglycerides 260 (H) <150 mg/dL [facility] OF PATHOLOGY AND GENOMIC MEDICINE HDL cholesterol 53 >40 mg/dL [facility] OF PATHOLOGY AND GENOMIC MEDICINE LDL cholesterol 123 (H)Comment: Result <100 mg/dL [facility] OF obtained by direct LDL PATHOLOGY AND measurement GENOMIC MEDICINE Lipid panel SeeBelow [facility] DE[facility]MENT OF interpretation Comment: PATHOLOGY AND Total Cholesterol GENOMIC MEDICINE (mg/dL) <200 Desirable 200-239Borderline -high >=240High Triglycerides (mg/dL) <150 Normal 150-199Borderline -high 200-499High >=500Very high HDL Cholesterol (mg/dL) <40Low (male) <40Low (female) LDL Cholesterol (mg/dL) <100 Optimal 100-129Near or above optimal 130-159Borderline -high 160-189High >=190Very high Risk Catergories that modify LDL goals. Risk Catergories LDL goal (mg/dL) CHD and CHD risk equivalent<100 (10-year risk >20%) Multiple (2+) risk factors <130 (10-year risk=<20%) 0-1 risk factors <160 (<10-year risk) Defining levels of lipids in metabolic syndrome Triglycerides >=150 mg/dL HDL Cholesterol Men <40 mg/dL Women <40 mg/dL Non-HDL cholesterol is a second target for therapy in persons with high triglycerides (>=200 mg/dL) Specimen Plasma specimen Performing Organization Address City/[facility] [place] [address] PATHOLOGY AND [facility] * Creatine kinase, total (CPK) (11/28/2017 8:10 PM) Creatine kinase 201 39 - 308 U/L [facility]MENT OF PATHOLOGY AND GENOMIC MEDICINE Specimen Plasma specimen Performing Organization Address City/[facility] [place] [address] PATHOLOGY AND [facility]INE * [place] level (11/28/2017 8:10 PM) [place] <0.05 (L) 0.60 - 1.20 mmol/L [facility]MENT OF PATHOLOGY AND GENOMIC MEDICINE Specimen Serum Performing Organization Address City/[facility]/Zipcode Phone Number [facility] [address] [place] [id number] PATHOLOGY AND GENOMIC MEDICINE * Carbamazepine level (11/28/2017 8:10 PM) Carbamazepine <2.00 (L) 8.00 - 12.00 ug/mL [facility]MENT OF PATHOLOGY AND GENOMIC MEDICINE Specimen Blood Performing Organization Address City/State/Zipcode Phone Number [facility] DEPARTMENT OF [address] [place] [address] PATHOLOGY AND GENOMIC MEDICINE after 06/28/2017
--- OUTSIDE RECORDS SUMMARY | 2018-06-29 09:58 | XMS REPORT ---
Author Author Admin, [place] Organization [facility] Address Unknown Phone Unavailable Allergies, Adverse Reactions, Alerts Allergy Name Reaction Description Start Date Severity Status Provider PENICILLIN Swelling, Rash, SOB Critical Active Beau BRASHERP Conditions or Problems Problem Name Problem Code Onset Date Status Entry Date Provider Comment Standard Description Annotate Pre-Exposure Prophylaxis z72.52 V69.2 Active Jovan Ramon MD High-risk sexual behavior ALCOHOL INTOXICATION, WITH USE DISORDER, SEVERE Active Valerie Sexton MD ALCOHOL USE DISORDER, SEVERE Active Valerie Sexton MD BIPOLAR I DISORDER, CURRENT EPISODE DEPRESSED, MODERATE Active Valerie Sexton MD Bipolar I disorder, most recent episode (or current) depressed, moderate GENERALIZED ANXIETY DISORDER Active Valerie Sexton MD Generalized anxiety disorder Overweight 278.02 Active Beau BRASHERP Overweight Tonsillitis, chronic 474.00 Active Beau BRASHERP Chronic tonsillitis Passive smoke exposure E869.4 Active Beau LINDQUIST Accidental poisoning from second-hand tobacco smoke Tobacco Use 305.1 Active Beau BRASHERP Tobacco use disorder Medication List Medication Instructions Start Date Stop Date Generic Name NDC Status Provider Patient Instruction TRUVADA 200-300 MG ORAL TABLET 1 by mouth daily EMTRICITABINE-TENOFOVIR 80553356284 Active Jovan Ramon MD Active CHLORDIAZEPOXIDE HCL 10 MG ORAL CAPSULE two By Mouth take at bedtime for one week then increase to two by mouth twice daily CHLORDIAZEPOXIDE HCL 99768169833 Active Valerie Sexton MD Active CHLORDIAZEPOXIDE HCL 25 MG ORAL CAPSULE 1 By Mouth every eight hours CHLORDIAZEPOXIDE HCL 38968612993 Active Jovan Ramon MD Active DIVALPROEX SODIUM ER 500 MG ORAL TABLET EXTENDED RELEASE 24 HOUR one By Mouth take at bedtime DIVALPROEX SODIUM 29382117064 Active Valerie Sexton MD Active GABAPENTIN 300 MG ORAL CAPSULE two By Mouth Three Times a Day GABAPENTIN 05714990213 Active Valerie Sexton MD Active MIRTAZAPINE 15 MG ORAL TABLET one By Mouth take at bedtime MIRTAZAPINE 96874748161 Active Valerie Sexton MD Active TRAZODONE HCL 100 MG ORAL TABLET one By Mouth take at bedtime As Needed insomnia TRAZODONE HCL 31298618552 Active Valerie Sexton MD Active HYDROXYZINE HCL 50 MG ORAL TABLET one By Mouth Three Times a Day As Needed anxiety HYDROXYZINE HCL 50 MG ORAL TABLET 316226 HYDROXYZINE HCL Inactive CLINDAMYCIN HCL 300 MG ORAL CAPSULE one tablet by mouth every 8 hours for 7 days CLINDAMYCIN HCL 300 MG ORAL CAPSULE 760729 CLINDAMYCIN HCL Inactive CLINDAMYCIN HCL 300 MG ORAL CAPSULE one tablet by mouth every 8 hours for 7 days CLINDAMYCIN HCL 300 MG ORAL CAPSULE 799715 CLINDAMYCIN HCL Inactive HYDROXYZINE HCL 50 MG ORAL TABLET one By Mouth Three Times a Day As Needed anxiety HYDROXYZINE HCL 38778966353 No Longer Active Valerie Sexton MD Active CLINDAMYCIN HCL 300 MG ORAL CAPSULE one tablet by mouth every 8 hours for 7 days CLINDAMYCIN HCL 26625625876 No Longer Active Beau LINDQUIST Active AZITHROMYCIN 500 MG ORAL TABLET One tab By Mouth Every Day for 3 days AZITHROMYCIN 43437150563 No Longer Active Beau LINDQUIST Active CLINDAMYCIN HCL 300 MG ORAL CAPSULE one tablet by mouth every 8 hours for 7 days CLINDAMYCIN HCL 38017203656 No Longer Active Beau LINDQUIST Active Vital Signs Date Name Value Unit Range Description blood pressure, diastolic 87 mm[Hg] BP srivastava blood pressure, systolic 141 mm[Hg] BP sys height E&M 69 [in_us] Bdy height pulse rate E&M 94 /min Heart rate weight E&M 235.60 [lb_av] Weight Measured blood pressure, diastolic 84 mm[Hg] BP srivastava blood pressure, systolic 125 mm[Hg] BP sys height E&M 69 [in_us] Bdy height pulse rate E&M 106 /min Heart rate temperature E&M 97.8 [degF] Body temperature weight E&M 235 [lb_av] Weight Measured blood pressure, diastolic 93 mm[Hg] BP srivastava blood pressure, systolic 131 mm[Hg] BP sys height E&M 69 [in_us] Bdy height pulse rate E&M 134 /min Heart rate weight E&M 221 [lb_av] Weight Measured blood pressure, diastolic 89 mm[Hg] BP srivastava blood pressure, systolic 128 mm[Hg] BP sys height E&M 69 [in_us] Bdy height pulse rate E&M 92 /min Heart rate weight E&M 232.60 [lb_av] Weight Measured Diagnostic Results Date Name Value Unit Range Description Lab Report: Upper Respiratory Culture, Result, Test Code Change - Microbiology throat culture for streptococcus Final report Lab Report: HBcAb+HBsAb+HBsAg+HCVAb, CBC With Differential/Platelet, Com ... - Chemistry hepatitis B surface antigen Negative Negative chloride, serum 104 mmol/L 96-106 Internal Other: Patient navigation 2 prep meds start- neg rapid HIV - Chemistry HIV rapid test results negative Lab Report: HBcAb+HBsAb+HBsAg+HCVAb, CBC With Differential/Platelet, Com ... - Microbiology hepatitis A antibody, total Negative Negative Lab Report: HBcAb+HBsAb+HBsAg+HCVAb, CBC With Differential/Platelet, Com ... - Chemistry urea nitrogen, blood 15 mg/dL 6-20 Lab Report: HBcAb+HBsAb+HBsAg+HCVAb, CBC With Differential/Platelet, Com ... - Hematology mean corpuscular hemoglobin concentration, RBC 32.6 G/DL % 31.5-35.7 erythrocyte (RBC) count 4.59 X10E6/UL 10*6/mm3 4.14-5.80 Lab Report: HBcAb+HBsAb+HBsAg+HCVAb, CBC With Differential/Platelet, Com ... - Serology hepatitis C antibody, serum 0.1 0.0-0.9 Lab Report: HBcAb+HBsAb+HBsAg+HCVAb, CBC With Differential/Platelet, Com ... - Chemistry Absolute Neutrophils 6.6 X10E3/UL 10*3/uL 1.4-7.0 urea nitrogen/creatinine ratio, serum 19 9-20 Lab Report: HBcAb+HBsAb+HBsAg+HCVAb, CBC With Differential/Platelet, Com ... - Hematology mean corpuscular volume, RBC 83 fL 79-97 monocytes as percent of blood leukocytes 7 % Not Estab. Lab Report: HBcAb+HBsAb+HBsAg+HCVAb, CBC With Differential/Platelet, Com ... - Chemistry albumin/globulin ratio, serum 1.8 1.2-2.2 creatinine, serum 0.81 mg/dL 0.76-1.27 bilirubin, serum, total <0.2 mg/dL mg/dL 0.0-1.2 Lab Report: HBcAb+HBsAb+HBsAg+HCVAb, CBC With Differential/Platelet, Com ... - Hematology Eosinophil Absolute Count 0.3 X10E3/UL 10*3/uL 0.0-0.4 Lab Report: Chlamydia/GC Amplification - Lab chlamydia DNA probe Negative Negative Lab Report: HBcAb+HBsAb+HBsAg+HCVAb, CBC With Differential/Platelet, Com ... - Chemistry aspartate aminotransferase (SGOT), serum 33 U/L 0-40 Lab Report: HBcAb+HBsAb+HBsAg+HCVAb, CBC With Differential/Platelet, Com ... - Hematology red blood cell distribution width 15.9 % 12.3-15.4 leukocyte count, blood 9.5 X10E3/UL 10*3/mm3 3.4-10.8 Lab Report: HBcAb+HBsAb+HBsAg+HCVAb, CBC With Differential/Platelet, Com ... - Chemistry potassium, serum 4.9 mmol/L 3.5-5.2 immature granulocytes, percentage of total cells, blood 2 % Not Estab. albumin, serum 4.6 g/dL 3.5-5.5 Lab Report: HBcAb+HBsAb+HBsAg+HCVAb, CBC With Differential/Platelet, Com ... - Hematology lymphocyte count, blood, automated 1.8 X10E3/UL 10*3/mm3 0.7-3.1 hematocrit, blood 38.3 % 37.5-51.0 Lab Report: Chlamydia/GC Amplification - Microbiology Neisseria gonorrhoeae DNA probe Negative Negative Lab Report: HBcAb+HBsAb+HBsAg+HCVAb, CBC With Differential/Platelet, Com ... - Chemistry sodium, serum 144 mmol/L 134-144 Lab Report: HBcAb+HBsAb+HBsAg+HCVAb, CBC With Differential/Platelet, Com ... - Hematology neutrophils as percent of blood leukocytes 69 % Not Estab. basophils as percent of blood leukocytes 0 % Not Estab. Lab Report: HBcAb+HBsAb+HBsAg+HCVAb, CBC With Differential/Platelet, Com ... - Serology rapid plasma reagin antibody, serum Non Reactive Non Reactive Lab Report: HBcAb+HBsAb+HBsAg+HCVAb, CBC With Differential/Platelet, Com ... - Chemistry carbon dioxide, venous blood 23 mmol/L 20-29 Lab Report: HBcAb+HBsAb+HBsAg+HCVAb, CBC With Differential/Platelet, Com ... - Serology hepatitis B core antibody, total Negative Negative Lab Report: HBcAb+HBsAb+HBsAg+HCVAb, CBC With Differential/Platelet, Com ... - Chemistry calcium, serum 9.7 mg/dL 8.7-10.2 alanine aminotransferase (SGPT), serum 93 U/L 0-44 Lab Report: HBcAb+HBsAb+HBsAg+HCVAb, CBC With Differential/Platelet, Com ... - Hematology mean corpuscular hemoglobin, RBC 27.2 pg 26.6-33.0 Lab Report: HBcAb+HBsAb+HBsAg+HCVAb, CBC With Differential/Platelet, Com ... - Chemistry protein, total, serum 7.1 g/dL 6.0-8.5 alkaline phosphatase, serum 91 U/L 39-117 Lab Report: HBcAb+HBsAb+HBsAg+HCVAb, CBC With Differential/Platelet, Com ... - Hematology hemoglobin, blood 12.5 g/dL 13.0-17.7 lymphocytes as percent of blood leukocytes 19 % Not Estab. Lab Report: HBcAb+HBsAb+HBsAg+HCVAb, CBC With Differential/Platelet, Com ... - Genetics/fertility eGFR if 133 mL/min/1.73m2 >59 Lab Report: HBcAb+HBsAb+HBsAg+HCVAb, CBC With Differential/Platelet, Com ... - Hematology basophil count, absolute 0.0 x10E3/uL 0.0-0.2 Lab Report: HBcAb+HBsAb+HBsAg+HCVAb, CBC With Differential/Platelet, Com ... - Chemistry globulin, serum 2.5 1.5-4.5 Estimated Glomerular Filtration Rate (calc) 115 mL/min/1.73m2 >59 Lab Report: HBcAb+HBsAb+HBsAg+HCVAb, CBC With Differential/Platelet, Com ... - Serology hepatitis B surface antibody Non Reactive Lab Report: HBcAb+HBsAb+HBsAg+HCVAb, CBC With Differential/Platelet, Com ... - Hematology eosinophils as percent of blood leukocytes 3 % Not Estab. Lab Report: HBcAb+HBsAb+HBsAg+HCVAb, CBC With Differential/Platelet, Com ... - Chemistry blood glucose, random 96 mg/dL 65-99 Lab Report: HBcAb+HBsAb+HBsAg+HCVAb, CBC With Differential/Platelet, Com ... - Hematology monocyte count, blood, automated 0.6 X10E3/UL 10*3/uL 0.1-0.9 platelet count 345 X10E3/UL 10*3/mm3 150-379 Encounters Date Encounter Provider Code Facility 12:53:53 CDT Est Patient Exp Problem - [id number] Valerie Sexton MD CPT-91180 [facility] 11:32:24 CDT New Patient Detailed - 95163 Jovan Ramon MD CPT-74425 [facility] [place] [facility] 08:43:17 CDT Est Patient Detailed - 27060 Valerie Sexton MD CPT-14127 [facility] 12:30:19 CDT New Patient Detailed - 71432 Beau BRASHERP CPT-90391 [facility] Procedures Code Procedure Name Date Entry Date Standard Description CPT-53882 Urine Drug Screen - In House 16:38:15 CDT CPT-FC001 Financial Counseling/Eligibility Assistance 09:28:38 CDT CPT-HE001 Health Education/Supportive Counseling 09:28:37 CDT CPT-HE001 Health Education/Supportive Counseling 15:54:41 CDT CPT-FC001 Financial Counseling/Eligibility Assistance 15:54:56 CDT CPT-HE001 Health Education/Supportive Counseling 15:52:57 CDT CPT-85887 Diagnostic evaluation with medical - 14461 13:24:06 CDT CPT-HE001 Health Education/Supportive Counseling 16:18:31 CDT CPT-HE001 Health Education/Supportive Counseling 11:03:06 CDT
[2018-06-29] MEDS ORDERED: THIAMINE HCL INJ 100 MG/ML 2ML VIAL IV ONE (10:00)
[2018-06-29] MEDS ORDERED: SODIUM CHLORIDE 0.9% 1000ML 2,000 ML IV ONE (10:00)
[2018-06-29] MEDS ORDERED: CHLORDIAZEPOXID25 MG (10:08)
[2018-06-29] MEDS ORDERED: TRAZODONE HCL100 MG (10:08)
[2018-06-29] MEDS ORDERED: GABAPENTIN300 MG (10:08)
[2018-06-29] MEDS ORDERED: DIVALPROEX SOD500 M1 (10:08)
[2018-06-29] MEDS ORDERED: TRUVADA 200 MG1 EACH (10:08)
[2018-06-29 10:33] LABS: BASOPHILS % 0.7 % (0.0-1.0); EOSINOPHILS % 0.7 % (0.0-6.0); HEMATOCRIT 45.8 % (38.2-49.6); HEMOGLOBIN 15.8 g/dL (14.0-18.0); LYMPHOCYTES # (AUTO) 2.6 (1.0-3.2); LYMPHOCYTES % 44.4 % (18.0-39.1); MEAN CORPUSCULAR HEMOGLOBIN 28.9 pg (28-32); MEAN CORPUSCULAR HGB CONC 34.5 g/dL (31-35); MEAN CORPUSCULAR VOLUME 83.9 fL (81-99); MONOCYTES # (AUTO) 0.6 (0.2-0.8); MONOCYTES % 10.1 % (4.4-11.3); NEUTROPHILS # (AUTO) 2.6 (2.1-6.9); NEUTROPHILS % 43.8 % (38.7-80.0); PLATELET COUNT 238 x10e3/uL (140-360); RED BLOOD COUNT 5.46 x10e6/uL (4.3-5.7); RED CELL DISTRIBUTION WIDTH 15.1 % (11.7-14.4)
[2018-06-29 10:52] LABS: ALANINE AMINOTRANSFERASE 112 IU/L (0-55); ALBUMIN 4.4 g/dL (3.5-5.0); ALBUMIN/GLOBULIN RATIO 1.3 (0.8-2.0); ALKALINE PHOSPHATASE 100 IU/L (40-150); ANION GAP 18.8 mmol/L (8-16); BLOOD UREA NITROGEN 12 mg/dL (7-26); BUN/CREATININE RATIO 12 (6-25); CALCIUM 9.1 mg/dL (8.4-10.2); CARBON DIOXIDE 25 mmol/L (22-29); CHLORIDE 102 mmol/L (98-107); CREATININE, SERUM 0.99 mg/dL (0.72-1.25); EST GLOMERULAR FILTRATION RATE > 60 ML/MIN (60-); GLUCOSE 116 mg/dL (74-118); MAGNESIUM 2.4 MG/DL (1.3-2.1); PHOSPHORUS 2.9 MG/DL (2.3-4.7); POTASSIUM 3.8 mmol/L (3.5-5.1); SODIUM 142 mmol/L (136-145)
[2018-06-29] MEDS ORDERED: FAMOTIDINE 20 MG/2 ML VIAL IV ONE (11:00)
[2018-06-29] MEDS ORDERED: FUROSEMIDE INJ 10 MG/ML 2 ML VIAL IV ONE (12:00)
[2018-06-29] MEDS ORDERED: DEXTROSE 5%/0.45% SOD CHL 1,000 ML IV ONE (12:00)
[2018-06-29] MEDS ORDERED: FUROSEMIDE INJ 10 MG/ML 4 ML VIAL ONE (12:02)
[2018-06-29] MEDS ORDERED: SODIUM CHLORIDE 0.9% 1000ML 1,000 ML IV ONE (17:00)
== END 2018-06-29 17:45 | disposition home or self-care (01) ==
LOC: ER 09:55
DX: F10.229 Alcohol dependence with intoxication, unspecified (principal); F17.210 Nicotine dependence, cigarettes, uncomplicated
CPT/HCPCS: 36415; 80053; 80320; 83735; 84100; 85025; 99284; J1940; J3411; J7030